=== PATIENT | female | born 1990 | race American Indian/Alaskan Native ===

== ENCOUNTER 2017-08-11 08:03 | Emergency (ER) | payer BC, MEDICAID ==
[2017-08-11 08:19] VITALS: RESP 18; TEMP 98.9; O2SAT 100
--- NOTE | 2017-08-11 09:07 | C.PDOC ---
Time Seen by Provider: 08/11/17 08:36 Chief Complaint (Nursing): Abdominal Pain Past Medical History Vital Signs: Last Vital Signs Temp 98.9 F 08/11/17 08:16 Pulse 94 H 08/11/17 08:16 Resp 18 08/11/17 08:16 BP 118/81 08/11/17 08:16 Pulse Ox 100 08/11/17 08:16 - Medical History PMH: Asthma (juvenile) Family History: States: Unknown Family Hx - Social History Hx Tobacco Use: No Hx Alcohol Use: Yes Hx Substance Use: No - Immunization History Hx Tetanus Toxoid Vaccination: No Hx Influenza Vaccination: No Hx Pneumococcal Vaccination: No ED Course And Treatment O2 Sat by Pulse Oximetry: 100 Disposition - Disposition
--- NOTE | 2017-08-11 09:10 | C.PDOC ---
History Of Present Illness [id number] female presents to ED for complaints of increasing pelvic pain. Patient describes pain as cramping. Patient reports fullness for the past 2 weeks. Patient also reports new onset vaginal spotting that began today. She states s/p IVF 2 weeks ago at [facility] and has felt the pelvic fullness ever since. Denies UTI symptoms, fever, nausea or vomiting. INCR PELVIC CRAMPING, FULLNESS X 2 WEEKS, NEW ONSET VAG SPOTTING TODAY. S/P IVF 2 WEEKS AGO (@ [facility]), PELVIC FULLNESS EVER SINCE. . NO UTI SX, FEVER , NV EXAM NAD NONTOXIC ABD NEG REMAINDER NEG Time Seen by Provider: 08/11/17 08:36 Chief Complaint (Nursing): Abdominal Pain History Per: Patient History/Exam Limitations: no limitations Onset/Duration Of Symptoms: Days Current Symptoms Are (Timing): Still Present Quality Of Discomfort: Cramping Associated Symptoms: denies: Fever, Chills, Nausea, Vomiting Alleviating Factors: None Recent travel outside of the [place]: No Abnormal Vaginal Bleeding: Yes : 2 Para: 1 Past Medical History Reviewed: Historical Data, Nursing Documentation, Vital Signs Vital Signs: Last Vital Signs Temp 98.9 F 08/11/17 11:17 Pulse 76 08/11/17 11:17 Resp 18 08/11/17 11:17 BP 123/81 08/11/17 11:17 Pulse Ox 100 08/11/17 11:30 - Medical History PMH: Asthma (juvenile) Surgical History: No Surg Hx Family History: States: Unknown Family Hx - Social History Hx Tobacco Use: No Hx Alcohol Use: Yes Hx Substance Use: No - Immunization History Hx Tetanus Toxoid Vaccination: No Hx Influenza Vaccination: No Hx Pneumococcal Vaccination: No Review Of Systems Constitutional: Negative for: Fever, Chills Gastrointestinal: Negative for: Nausea, Vomiting Genitourinary: Positive for: Vaginal Discharge (Spotting), Pelvic Pain ( associated with fullness). Negative for: Other (UTI) Skin: Negative for: Rash Neurological: Negative for: Weakness, Numbness Physical Exam - Physical Exam Appears: Well, Non-toxic, No Acute Distress Skin: Normal Color, Warm, Dry Eye(s): bilateral: Normal Inspection, PERRL, EOMI Oral Mucosa: Moist Chest: Symmetrical, No Tenderness Cardiovascular: Rhythm Regular Respiratory: No Decreased Breath Sounds, No Rales, No Rhonchi, No Wheezing Gastrointestinal/Abdominal: Soft, No Tenderness, No Distention Neurological/Psych: Oriented x3, Normal Speech, Normal Cognition Gait: Steady ED Course And Treatment - Laboratory Results Result Diagrams: 08/11/17 09:23 08/11/17 09:23 O2 Sat by Pulse Oximetry: 100 (RA) Pulse Ox Interpretation: Normal - CT Scan/US Abdomen/Pelvis/Transvaginal US Other Rad Studies (CT/US): Read By Radiologist, Radiology Report Reviewed CT/US Interpretation: HISTORY: Vaginal bleeding. Rule out ectopic. COMPARISON : No prior study available for comparison. TECHNIQUE: Transabdominal transvaginal sonographic evaluation of pelvis performed. FINDINGS: UTERUS: Anteverted measuring approximately 11.0 x 4.9 x 6.4 cm. Normal in size and appearance. No fibroid or other mass lesion seen. ENDOMETRIUM: Measures 8.2 mm in diameter. No evidence of intrauterine gestation. Correlation with beta HCG recommended as the possibility of an ectopic cannot be excluded based on this exam. CERVIX: No cervical abnormality identified. . Cervix measures 3.93 cm. RIGHT OVARY: Measures 3.5 x 1.6 x 2.9 cm. No solid mass. Normal flow. LEFT OVARY: Measures 5.5 x 3.5 x 4.7 cm. No solid mass. Normal flow. Small ovarian cyst measuring approximately 3.2 x 2.3 x 2x 2.9 cm. FREE FLUID: No significant free fluid noted. OTHER FINDINGS: None. IMPRESSION: No evidence of intrauterine gestation. Note that the possibility of an ectopic cannot be excluded based on this study and therefore correlation with Artur HCG recommended. If necessary follow up, serial serum beta HCG and serial pelvic ultrasound recommended. . Small left ovarian cyst. Progress - Re-Evaluation Re-evaluation Note: 08/11/17 09:10 D/W DR PETERSON OB ENVIRONMENTAL ANALYST AWARE OF ER FINDINGS, AGREES W PLAN Medical Decision Making Medical Decision Making: Ordered blood work, urinalysis, and transvaginal and pelvis US. Disposition Counseled Patient/Family Regarding: Studies Performed, Diagnosis, Need For Followup - Disposition Referrals: [facility] [Other] [facility] [Outside] [facility] [Outside] Disposition: HOME/ ROUTINE Disposition Time: 11:39 Condition: GOOD Instructions: Acute Pelvic Pain (DC) Forms: [employer] Connect (Greek), Work Excuse - Clinical Impression Clinical Impression: Vaginal bleeding - Scribe Statement The provider has reviewed the documentation as recorded by the Eugeneibchace Preciado All medical record entries made by the Scribe were at my direction and personally dictated by me. I have reviewed the chart and agree that the record accurately reflects my personal performance of the history, physical exam, medical decision making, and the department course for this patient. I have also personally directed, reviewed, and agree with the discharge instructions and disposition.
[2017-08-11 09:31] LABS: BASO % 1.1 % (0.0-2.0); HEMOGLOBIN 12.8 g/dL (11.0-16.0); LYMPH # 1.5 K/uL (1.0-4.3); MEAN CELL VOLUME 92.3 fL (81.0-99.0); MEAN CORPUSCULAR HEMOGLOBIN 32.2 pg (27.0-31.0); MEAN CORPUSCULAR HGB CONC 34.9 g/dL (33.0-37.0); MEAN PLATELET VOLUME 8.7 fL (7.2-11.7); MONO # 0.5 K/uL (0.0-0.8); MONO % 11.2 % (0.0-10.0); NEUT # 2.6 K/uL (1.8-7.0); NEUT % 54.7 % (50.0-75.0); NRBC % 0.1 % (0.0-2.0); RBC 3.96 Mil/uL (3.80-5.20); RED CELL DISTRIBUTION WIDTH 13.1 % (11.5-14.5); WHITE BLOOD COUNT 4.7 K/uL (4.8-10.8)
[2017-08-11 09:46] LABS: ALBUMIN 3.9 g/dL (3.5-5.0); ALT/SGPT 11 U/L (9-52); AST/SGOT 21 U/L (14-36); BLOOD UREA NITROGEN 16 mg/dL (7-17); CALCIUM 8.9 mg/dl (8.6-10.4); GFR AFRICAN-AMERICAN > 60; GFR NON-AFRICAN AMERICAN > 60
[2017-08-11 09:47] LABS: SQUAMOUS EPITHIAL 19 /hpf (0-5); URINE BACTERIA RARE (<OCC); URINE BILIRUBIN NEGATIVE (NEGATIVE); URINE BLOOD 3+ (NEGATIVE); URINE CLARITY Hazy (Clear); URINE COLOR Yellow (YELLOW); URINE GLUCOSE (UA) NORMAL (Normal); URINE LEUKOCYTE ESTERASE NEG Leu/uL (Negative); URINE PROTEIN 2+ mg/dL (NEGATIVE)
--- NOTE | 2017-08-11 11:06 | US ---
HISTORY: Vaginal bleeding. Rule out ectopic COMPARISON: No prior study available for comparison TECHNIQUE: Transabdominal transvaginal sonographic evaluation of pelvis performed. FINDINGS: UTERUS: Anteverted measuring approximately 11.0 x 4.9 x 6.4 cm. Normal in size and appearance. No fibroid or other mass lesion seen. ENDOMETRIUM: Measures 8.2 mm in diameter. No evidence of intrauterine gestation. Correlation with beta HCG recommended as the possibility of an ectopic cannot be excluded based on this exam. CERVIX: No cervical abnormality identified. . Cervix measures 3.93 cm RIGHT OVARY: Measures 3.5 x 1.6 x 2.9 cm. No solid mass. Normal flow. LEFT OVARY: Measures 5.5 x 3.5 x 4.7 cm. No solid mass. Normal flow. Small ovarian cyst measuring approximately 3.2 x 2.3 x 2x 2.9 cm FREE FLUID: No significant free fluid noted. OTHER FINDINGS: None. IMPRESSION: No evidence of intrauterine gestation. Note that the possibility of an ectopic cannot be excluded based on this study and therefore correlation with Artur HCG recommended. If necessary follow up, serial serum beta HCG and serial pelvic ultrasound recommended. . Small left ovarian cyst.
[2017-08-11 11:18] VITALS: BP 123/81; PULSE 76
== END 2017-08-11 11:47 | disposition home or self-care (01) ==
LOC: C.ER 08:03
DX: N93.9 Abnormal uterine and vaginal bleeding, unspecified (principal)

== ENCOUNTER 2017-12-11 16:52 | Emergency (ER) | payer BC ==
[2017-12-11 18:31] LABS: BASO # 0.1 K/uL (0.0-0.2); BASO % 0.8 % (0.0-2.0); EOS # 0.1 K/uL (0.0-0.7); EOS % 0.9 % (0.0-4.0); HEMOGLOBIN 12.6 g/dL (11.0-16.0); LYMPH # 2.1 K/uL (1.0-4.3); LYMPH % 27.1 % (20.0-40.0); MEAN CELL VOLUME 91.1 fL (81.0-99.0); MEAN CORPUSCULAR HEMOGLOBIN 31.4 pg (27.0-31.0); MEAN CORPUSCULAR HGB CONC 34.5 g/dL (33.0-37.0); MEAN PLATELET VOLUME 8.2 fL (7.2-11.7); MONO # 0.9 K/uL (0.0-0.8); MONO % 11.3 % (0.0-10.0); NEUT # 4.7 K/uL (1.8-7.0); NEUT % 59.9 % (50.0-75.0); NRBC % 0.1 % (0.0-2.0); RED CELL DISTRIBUTION WIDTH 13.2 % (11.5-14.5); WHITE BLOOD COUNT 7.9 K/uL (4.8-10.8)
[2017-12-11 18:37] LABS: HCG,QUALITATIVE URINE POSITIVE (NEGATIVE)
[2017-12-11 18:39] LABS: INR 1.1; PROTHROMBIN TIME 12.3 SECONDS (9.7-12.2)
[2017-12-11 18:42] LABS: SQUAMOUS EPITHIAL 9 /hpf (0-5); URINE BACTERIA RARE (<OCC); URINE BILIRUBIN NEGATIVE (NEGATIVE); URINE BLOOD 3+ (NEGATIVE); URINE CLARITY Hazy (Clear); URINE COLOR Yellow (YELLOW); URINE GLUCOSE (UA) NORMAL (Normal); URINE LEUKOCYTE ESTERASE NEG Leu/uL (Negative); URINE PROTEIN NEGATIVE (NEGATIVE); URINE UROBILINOGEN NORMAL mg/dL (0.2-1.0)
--- NOTE | 2017-12-11 18:56 | C.PDOC ---
History Of Present Illness 27 y/o female, A1, LNMP 11/07/17, presents to the ER for evaluation of vaginal spotting which developed 1 hour RN ICU. Pt states that she has associated intermittent lower abdominal cramping. Pt admits, "was seen by PMD week ago, when had blood work done for ". Otherwise, pt denies fever, chills, recent illness, sore throat, CP< SOB, dyspnea, abdominal pain, UTI symptoms, vaginal irritation or discharge. Ambulate to Ed for evaluation, not in any apparent distress. Time Seen by Provider: 12/11/17 16:57 Chief Complaint (Nursing): Female Genitourinary History Per: Patient History/Exam Limitations: no limitations Onset/Duration Of Symptoms: Hrs Current Symptoms Are (Timing): Still Present Severity: Moderate Past Medical History Reviewed: Historical Data, Nursing Documentation, Vital Signs Vital Signs: Last Vital Signs Temp 99.1 F 12/11/17 17:02 Pulse 91 H 12/11/17 17:02 Resp 18 12/11/17 17:02 BP 113/76 12/11/17 17:02 Pulse Ox 98 12/11/17 19:02 - Medical History PMH: Asthma (juvenile) Other Surgeries: Hx of surgeries Family History: States: No Known Family Hx - Social History Hx Tobacco Use: No Hx Alcohol Use: Yes Hx Substance Use: No - Immunization History Hx Tetanus Toxoid Vaccination: Yes Hx Influenza Vaccination: No Hx Pneumococcal Vaccination: No Review Of Systems Except As Marked, All Systems Reviewed And Found Negative. Constitutional: Negative for: Fever, Chills Cardiovascular: Negative for: Chest Pain Respiratory: Negative for: Shortness of Breath Gastrointestinal: Negative for: Nausea, Vomiting, Abdominal Pain, Diarrhea Genitourinary: Positive for: Other (vaginal spotting). Negative for: Dysuria, Hematuria Physical Exam - Physical Exam Appears: Well, Non-toxic, No Acute Distress Skin: Normal Color, Warm, Dry Head: Normacephalic Eye(s): bilateral: PERRL Nose: No Flaring Oral Mucosa: Moist, No Drooling Tongue: Normal Appearing Lips: Normal Appearing Throat: No Erythema Neck: Trachea Midline, Supple Chest: Symmetrical Cardiovascular: Rhythm Regular, No Murmur, No JVD Respiratory: No Decreased Breath Sounds, No Accessory Muscle Use, No Stridor, No Wheezing Gastrointestinal/Abdominal: Soft, No Tenderness, No Distention, No Guarding, No Rebound Back: No CVA Tenderness Extremity: Normal ROM, No Pedal Edema, No Swelling Neurological/Psych: Oriented x3, Normal Speech ED Course And Treatment - Laboratory Results Result Diagrams: 12/11/17 18:26 Lab Interpretation: Normal Urine POC: Positive O2 Sat by Pulse Oximetry: 98 (RA) Pulse Ox Interpretation: Normal - CT Scan/US Transvaginal US Other Rad Studies (CT/US): Read By Radiologist CT/US Interpretation: NO IUP, B/L ovarian cyst, prelim Progress Note: Labs, UA, and US- OB Transvag. ordered. On re-eval, pt is afebrile, hemodynamicaly stable. Non-toxic. PulsEOx 98% RA. ENT: No acute findings. neck: SUpple, (-) JVD. Lungs: CTA B/L, BS equal B/L. ABd: benign, ( -) guarding, (-) rebound. Back: (-) CVA tenderness. Neurologicaly intact. Blood work review- no acute abnormalities. Blood type: O positive. US: (-) IUP , B/L ovarian cyst. Beta quant 298. Pt has clinical findings c/w threated miscarriage. Pt advised on course of ds. ref. to return to ED in 2 days for re -eval./repeat beta quant. return to ED if any worsening or new changes. Disposition Counseled Patient/Family Regarding: Studies Performed, Diagnosis, Need For Followup - Disposition [facility] [Outside] Disposition: HOME/ ROUTINE Disposition Time: 19:45 Condition: STABLE Additional Instructions: " pelvic rest", avoid heavy lifting, sexual contact for 1 week Follow up with OB or Return to ED in 2 days to repeat blood work return to ED at any time if any worsening or new changes. Instructions: Threatened Miscarriage Forms: [employer] (Venezuelan) - Clinical Impression Clinical Impression: Threatened - PA / REBAR BENDER / Resident Statement MD/DO has reviewed & agrees with the documentation as recorded. - Scribe Statement The provider has reviewed the documentation as recorded by the Eugeneibe Precious Carey Provider Attestation All medical record entries made by the Scribe were at my direction and personally dictated by me. I have reviewed the chart and agree that the record accurately reflects my personal performance of the history, physical exam, medical decision making, and the department course for this patient. I have also personally directed, reviewed, and agree with the discharge instructions and disposition.
[2017-12-11 20:14] VITALS: BP 101/70; PULSE 76; RESP 20; TEMP 99; O2SAT 100
--- NOTE | 2017-12-12 09:05 | US ---
Date of service: 12/11/2017 HISTORY: vaginal bleeding, pain COMPARISON: None available. TECHNIQUE: Transabdominal and transvaginal pelvic ultrasound was performed. FINDINGS: UTERUS: Measures 12.0 x 4.6 x 5.7 cm. Normal in size and appearance. No fibroid or other mass lesion seen. ENDOMETRIUM: Measures 11 mm in diameter. The central endometrial echo complex is normal in appearance. No evidence of intrauterine gestation CERVIX: There is a nabothian cyst in the cervix. RIGHT OVARY: Measures 4.8 x 3.5 x 4.2 cm. No solid mass. Normal flow. There is a 3.2 x 2.9 x 3.1 cm simple cyst. LEFT OVARY: Measures 3.3 x 3.1 x 4.2 cm. No solid mass. Normal flow. There is a 1.9 x 1.3 x 1.4 cm complicated/ hemorrhagic cyst. FREE FLUID: No significant free fluid noted. OTHER FINDINGS: None. IMPRESSION: No evidence of intrauterine gestational sac. 3.2 cm simple cyst in the right ovary. A preliminary report was provided by [facility].
== END 2017-12-11 20:29 | disposition home or self-care (01) ==
LOC: C.ER 16:52
DX: O20.0 Threatened abortion (principal)

== ENCOUNTER 2018-01-11 10:52 | Emergency (ER) | payer BC ==
[2018-01-11] MEDS ORDERED: Sodium Chloride 0.9% 1,000 ML IV ONE (11:52)
[2018-01-11 12:08] LABS: BASO % 0.3 % (0.0-2.0); EOS % 0.5 % (0.0-4.0); HEMOGLOBIN 12.2 g/dL (11.0-16.0); LYMPH # 1.3 K/uL (1.0-4.3); LYMPH % 20.5 % (20.0-40.0); MEAN CELL VOLUME 90.8 fL (81.0-99.0); MEAN CORPUSCULAR HEMOGLOBIN 32.2 pg (27.0-31.0); MEAN CORPUSCULAR HGB CONC 35.4 g/dL (33.0-37.0); MEAN PLATELET VOLUME 8.2 fL (7.2-11.7); MONO # 0.6 K/uL (0.0-0.8); MONO % 9.6 % (0.0-10.0); NEUT # 4.5 K/uL (1.8-7.0); NEUT % 69.1 % (50.0-75.0); RBC 3.8 Mil/uL (3.80-5.20); RED CELL DISTRIBUTION WIDTH 12.7 % (11.5-14.5); WHITE BLOOD COUNT 6.5 K/uL (4.8-10.8)
[2018-01-11 12:24] LABS: SQUAMOUS EPITHIAL < 1 /hpf (0-5); URINE BILIRUBIN NEGATIVE (NEGATIVE); URINE BLOOD NEGATIVE (NEGATIVE); URINE CLARITY Hazy (Clear); URINE COLOR Amber (YELLOW); URINE GLUCOSE (UA) NORMAL (Normal); URINE LEUKOCYTE ESTERASE NEG Leu/uL (Negative); URINE PROTEIN 1+ mg/dL (NEGATIVE)
[2018-01-11 12:27] LABS: BLOOD UREA NITROGEN 16 mg/dL (7-17); GFR NON-AFRICAN AMERICAN > 60
[2018-01-11 12:28] LABS: ALB/GLOB RATIO 1.2 (1.0-2.1); ALBUMIN 4.4 g/dL (3.5-5.0); ALT/SGPT 58 U/L (9-52); AST/SGOT 23 U/L (14-36); CALCIUM 9.7 mg/dl (8.6-10.4)
--- NOTE | 2018-01-11 12:38 | C.PDOC ---
History Of Present Illness 27 year old female, 8 weeks , presents to the ED with nausea and vomiting since the beginning of her . She denies any abdominal pain, fever, chills and vaginal bleeding. Patient states this is her 6th . Time Seen by Provider: 01/11/18 12:22 Chief Complaint (Nursing): Abdominal Pain History Per: Patient History/Exam Limitations: no limitations Onset/Duration Of Symptoms: Days Current Symptoms Are (Timing): Still Present Associated Symptoms: Nausea, Vomiting Abnormal Vaginal Bleeding: No Past Medical History Reviewed: Historical Data, Nursing Documentation, Vital Signs Vital Signs: Last Vital Signs Temp 98.4 F 01/11/18 11:21 Pulse 97 H 01/11/18 11:21 Resp 19 01/11/18 11:21 BP 112/76 01/11/18 11:21 Pulse Ox 100 01/11/18 11:21 - Medical History PMH: Asthma (juvenile) Family History: States: Unknown Family Hx - Social History Hx Tobacco Use: No Hx Alcohol Use: No Hx Substance Use: No - Immunization History Hx Tetanus Toxoid Vaccination: No Hx Influenza Vaccination: No Hx Pneumococcal Vaccination: Yes Review Of Systems Constitutional: Negative for: Fever, Chills Gastrointestinal: Positive for: Nausea, Vomiting. Negative for: Abdominal Pain Genitourinary: Negative for: Vaginal Bleeding Physical Exam - Physical Exam Appears: Well, Non-toxic, No Acute Distress Skin: Normal Color, Warm, Dry Head: Atraumatic, Normacephalic Eye(s): bilateral: Normal Inspection Oral Mucosa: Moist Neck: Normal, Supple Cardiovascular: Rhythm Regular, No Murmur Respiratory: Normal Breath Sounds, No Rales, No Rhonchi, No Wheezing Gastrointestinal/Abdominal: Soft, No Tenderness, No Distention, No Guarding, No Rebound Extremity: Normal ROM Neurological/Psych: Oriented x3, Normal Speech Gait: Steady ED Course And Treatment - Laboratory Results Result Diagrams: 01/11/18 11:57 01/11/18 11:57 O2 Sat by Pulse Oximetry: 100 (RA) Pulse Ox Interpretation: Normal Medical Decision Making Medical Decision Making: Assessment: 27 year old female with nausea and vomiting. Plan: -BETA-HCG, QUANTITATIVE -CMP -CBC -URINALYSIS Follow up: Labs were reviewed with no acute findings. Discussed results with patient, who on re-examination, is resting comfortably and is in no acute distress. Patient was able to tolerate PO fluids and peanuts in the ED. No clinical signs of dehydration. Recommend rest and fluids, will prescribe antiemetic. Counseled regarding diagnosis and follow up instructions. Disposition Counseled Patient/Family Regarding: Diagnosis, Need For Followup, Rx Given - Disposition [facility]errals[facility] [Outside] Disposition: HOME/ ROUTINE Disposition Time: 12:35 Condition: STABLE Additional Instructions: Take antinausea medicine as needed 3 times a day Drink fluids, gatorade or sport drink Follow up with your desolderer Prescriptions: Doxylamine/Pyridoxine HCl (B6) [Melissa Martinez 10-10 mg Tablet] 1 each PO Q6 #20 tablet. Instructions: Nausea and Vomiting of (DC) Forms: [employer] (Bermudian) - POA Present On Arrival: Blood Incompatibility - Clinical Impression Clinical Impression: Hyperemesis gravidarum - PA / TAKER OFF DRYING KILN / Resident Statement MD/DO has reviewed & agrees with the documentation as recorded. - Scribe Statement The provider has reviewed the documentation as recorded by the Scribe (Vy Baron) All medical record entries made by the Scribe were at my direction and personally dictated by me. I have reviewed the chart and agree that the record accurately reflects my personal performance of the history, physical exam, medical decision making, and the department course for this patient. I have also personally directed, reviewed, and agree with the discharge instructions and disposition.
[2018-01-11 12:48] VITALS: BP 115/79; PULSE 91; RESP 18; TEMP 98.8
[2018-01-11 12:56] VITALS: O2SAT 100
== END 2018-01-11 12:51 | disposition home or self-care (01) ==
LOC: C.ER 10:52
DX: O21.0 Mild hyperemesis gravidarum (principal); Z3A.08 8 weeks gestation of pregnancy
CPT/HCPCS: 36415; 80053; 81001; 84702; 85025; 96360; 99284; J7030